=== PATIENT | female | born 1985 | race Caucasian/White ===

== ENCOUNTER 2016-09-22 22:18 | Emergency (ER) | payer SELFPAY ==
[~2016-09-22 22:18] MED LIST: BACTRIM DS TAB1 EAC2 PO; COLACE100 MG PO; CYCLOBENZAPRINE10 M1 PO; DIBUCAINE EXT; DULCOLAX10 MG/SUPP RC; HYDROCORTISONE30 G4 APL; IBUPROFEN200 M2 PO; IBUPROFEN800 M1 PO; MOTRIN800 MG PO; NAPROXEN500 M1 PO; NO HOME MEDICATION XX; NO MEDICATIONS; NORCO 5-325 TA1 EACH PO; NORCO 5/325 TAB1 TAB PO; PERCOCET 5-3251 EACH PO; PERCOCET 5/3251 TAB PO; PRENATAL TABLE1 EAC5 PO; PRENATAL1 TAB; PRENATAL1 TAB PO; TRIPNIP TOP; TYLENOL EXTRA500 M1 PO; TYLENOL PM EX-1 EAC4 PO; TYLENOL PM EX-1 EACH PO
[2016-09-23] MEDS ORDERED: AUGMENTIN 875-1 EAC2 PO (01:28)
== END 2016-09-23 01:44 ==
LOC: EDMED 22:18
PROC: 0HQDXZZ Repair Right Lower Arm Skin, External Approach (ICD-10-PCS; principal; 2016-09-22)
DX: S51.851A Open bite of right forearm, initial encounter (principal); Z87.442 Personal history of urinary calculi; W54.0XXA Bitten by dog, initial encounter; Y92.410 Unspecified street and highway as the place of occurrence of the external cause
CPT/HCPCS: J0295; J1170; J2405; J7030